=== PATIENT | male | born 1990 | race Two or more races ===

== ENCOUNTER 2020-12-21 15:29 | Outpatient (REF) | payer OTHER, SELFPAY | END 2020-12-21 15:30 | disposition home or self-care (01) | LOC: HO.LAB 15:29 | PROVIDERS: Visit Provider Internal Medicine | DX: Z20.822 Contact with and (suspected) exposure to COVID-19 (principal) | CPT/HCPCS: 36415; C9803; U0003; U0005 ==

== ENCOUNTER 2021-11-07 14:43 | Outpatient (REF) | payer OTHER, SELFPAY ==
[2021-11-07 16:29] LABS: Binax Internal Control QC Valid; Binax Lot number: 9864; Binax Now Covid-19 Ag Negative (Negative)
== END 2021-11-07 14:44 | disposition home or self-care (01) ==
LOC: HO.LAB 14:43
PROVIDERS: Visit Provider Internal Medicine
DX: Z20.822 Contact with and (suspected) exposure to COVID-19 (principal)
CPT/HCPCS: 36415; C9803